=== PATIENT | female | born 1975 | race African-American/Black ===

== ENCOUNTER 2025-04-18 12:10 | Emergency (ER) | payer MEDICAID ==
[~2025-04-18] VITALS: Ht 162.6 cm; Wt 110.0 kg
[2025-04-18 12:48] VITALS: BP 165/94; PULSE 66; RESP 18; O2SAT 98
--- NOTE | 2025-04-18 13:11 | RADIOLOGY REPORT ---
EXAM: DI SHOULDER, COMPLETE (MIN 2 VWS) HISTORY: Shoulder Pain RT. COMPARISON: None TECHNIQUE: 3 views of the right shoulder were performed. FINDINGS: No acute fracture or dislocation are identified about the right shoulder. There is acromioclavicular hypertrophy without significant loss of subacromial space. There is thoracic degenerative disc disease, not fully imaged here. IMPRESSION: 1. No acute fracture of the right shoulder. 2. Acromioclavicular hypertrophy.
--- NOTE | 2025-04-18 14:44 | Physician Documentation ---
History of Present Illness ~ Chief Complaint: Shoulder pain Stated Complaint: R SHOULDER PAIN Time Seen by MD: 14:02 HPI Patient is seen today with complaints of right-sided shoulder pain for a month after her dog accidentally knocked her over and she fell back onto her right elbow. Patient has no other concern or complaint at this time. She denies any numbness or tingling of her upper extremities. She states her pain is in her anterior shoulder of the right shoulder. Medication Reconciliation Allergies: Coded Allergies: No Known Allergies (Unverified , 04/18/25) Review of Systems Constitutional: Denies: chills, fever, weakness Eyes: Denies: pain, blurred vision ENT: Denies: ear pain, nose pain, throat pain, mouth pain Respiratory: Denies: cough, shortness of breath Cardiovascular: Denies: chest pain, palpitations Gastrointestinal: Denies: abdominal pain, nausea, vomiting Genitourinary: Denies: burning, dysuria Female Genitalia: Denies: vaginal discharge, pelvic pain Neurological: Denies: headache, dizziness Musculoskeletal: Denies: pain, swelling Integumentary: Denies: rash, lesions Allergic/Immunologic: Denies: hives, itching Hematologic/Lymphatic: Denies: no symptoms reported Psychiatric: Denies: depression, anxiety Physical Exam Vital Signs: Temperature: 97.2, Source: Temporal, Heart Rate: 66, Respiratory Rate: 18, BP: 165/94, Pulse Oximetry: 98, Weight: 110.000 Physical Exam General: Awake and Alert, no acute distress. HEENT: Conjunctiva pink, Sclera clear, Mucus Membranes moist. Neck: Supple without masses and tenderness. Resp: Unlabored. Lungs clear to auscultation bilaterally. Heart: Regular Rate and rhythm, normal S1 and S2 without murmur, rub or gallop. Musculoskeletal: Patient on exam does have significant tenderness to palpation in the area of the long head of the biceps in the anterior portion of the right right shoulder. Patient has positive speed's test. Patient is neurovascularly intact distally of the bilateral upper extremities. Patient has decreased range of motion of the right shoulder due to pain. Extremities: No cyanosis,clubbing or edema. Skin: Warm and Dry. Progress Results/Orders Results/Orders Vital Signs 04/18/25 12:48 Temp 97.2 Pulse 66 Resp 18 B/P (MAP) 165/94 Pulse Ox 98 EKG/XRAY/CT/US/VASC/MRI Bone/Soft Tissue X-Ray (Ext.) : Additional Comment X-ray of right shoulder interpreted by myself today shows no sign of acute fracture, prominence of the AC joint of the right shoulder. Bones in otherwise anatomic alignment. DIAGNOSTIC RADIOLOGY Patient: RANDI CALIXTO Medical Record: [id number] [facility] : 1975, Age: 49 Sex: Female Location: ER Patient Status: [facility] ER Service Date/Time: 04/18/25/ 1250 Ordering Physician: MELISA PIKE NP Exam: SHOULDER, COMPLETE (MIN 2 VWS) EXAM: DI SHOULDER, COMPLETE (MIN 2 VWS) HISTORY: Shoulder Pain RT. COMPARISON: None TECHNIQUE: 3 views of the right shoulder were performed. FINDINGS: No acute fracture or dislocation are identified about the right shoulder. There is acromioclavicular hypertrophy without significant loss of subacromial space. There is thoracic degenerative disc disease, not fully imaged here. IMPRESSION: 1. No acute fracture of the right shoulder. 2. Acromioclavicular hypertrophy. Electronically Signed by:PEDRO HENDRICKS MD Date & Time: 04/18/251308 Dictated by: PEDRO HENDRICKS MD Dictation date and time: 04/18/25 130 Primary Care Provider: NO PRIMARY CARE PROVIDER cc: MELISA PIKE COLLECTION COORDINATOR ~ Medical Decision Making Findings Patient is seen today with complaints of right-sided shoulder pain for a month after her dog accidentally knocked her over and she fell back onto her right elbow. Patient has no other concern or complaint at this time. She denies any numbness or tingling of her upper extremities. She states her pain is in her anterior shoulder of the right shoulder. Patient did have x-ray of the right shoulder that showed no sign of acute fracture. Patient likely has biceps tendonitis. Patient will follow up with primary care for referral for physical therapy and/or orthopedic consultation. Patient was given prescription of Medrol Dosepak and meloxicam 15 mg one tab once a day to be taken with food to be taken as prescribed. Patient will return to ED with any worsening, concerning or changing symptoms Departure Disposition: 01 HOME / SELF CARE / HOMELESS Impression: Primary Impression: Shoulder pain Qualified Codes: M25.511 - Pain in right shoulder Condition: Stable Discharge Instructions: Shoulder Pain, [id number] Additional Instructions: Patient did have x-ray of the right shoulder that showed no sign of acute fracture. Patient likely has biceps tendonitis. Patient will follow up with primary care for referral for physical therapy and/or orthopedic consultation. Patient was given prescription of Medrol Dosepak and meloxicam 15 mg one tab once a day to be taken with food to be taken as prescribed. Patient will return to ED with any worsening, concerning or changing symptoms Referrals: NO PRIMARY CARE PROVIDER (PCP) Prescriptions Meloxicam (Meloxicam) 15 Mg Tablet 1 TAB PO DAILY for 30 Days, #30 TAB 0 Refills Prov: ADILENE DONNELLY 04/18/25 Methylprednisolone (Medrol Dosepak) 4 Mg Tab.ds.pk 0 PO UD, #21 TAB 0 Refills take 6 Pills Day 1, 5 Pills Day 2, 4 Pills Day 3, 3 Pills Day 4, 2 Pills Day 5 and 1 pill Day 6 Prov: ADILENE DONNELLY 04/18/25 Signature Scribe Signature: No scribe Attestation: No scribe ADILENE DONNELLY Apr 18, 2025 14:44
[2025-04-18] MEDS ORDERED: MELO-102 PO (14:45)
[2025-04-18] MEDS ORDERED: METH4TAB81 PO (14:45)
[2025-04-18 14:57] VITALS: TEMP 97.2
== END 2025-04-18 14:58 | disposition home or self-care (01) ==
LOC: ER 12:11
DX: M25.511 Pain in right shoulder (principal); W18.30XA Fall on same level, unspecified, initial encounter; Y93.89 Activity, other specified; Y92.89 Other specified places as the place of occurrence of the external cause; Y99.8 Other external cause status
CPT/HCPCS: 73030; 99283